=== PATIENT | male | born 1990 | race Caucasian/White ===

== ENCOUNTER 2017-02-21 16:38 | Emergency (ER) | payer SELFPAY ==
--- NOTE | 2017-02-21 16:49 | CPEKG ---
Heart Rate: 140 RR Interval: 429 QRSD Interval: 82 QT Interval: 296 QTC Interval: 452 QRS [place]: 84 T Wave [place]: -11 EKG Severity - ABNORMAL ECG - EKG Impression: ATRIAL FIBRILLATION, V-RATE 101-183 Electronically Signed By: García Guzmán 23-Feb-2017 17:09:19
--- NOTE | 2017-02-21 16:49 | CPEKG ---
Heart Rate: 140 RR Interval: 429 QRSD Interval: 82 QT Interval: 296 QTC Interval: 452 QRS [place]: 84 T Wave [place]: -11 EKG Severity - ABNORMAL ECG - EKG Impression: ATRIAL FIBRILLATION, V-RATE 101-183 Electronically Signed By: García Guzmán 23-Feb-2017 17:09:19
[2017-02-21] MEDS ORDERED: DILTIAZEM 25 MG/5 ML VIAL IVP ONE (16:56)
[2017-02-21] MEDS ORDERED: NS 1,000 ML IV ONE ×2 (16:56→17:59)
[2017-02-21 16:57] VITALS: TEMP 98.4
[2017-02-21 17:07] LABS: PLATELET COUNT 276 10^3/uL (150-400)
--- NOTE | 2017-02-21 17:12 | EDPHY ---
H & P Stated Complaint: sz like activity with unresponsiveness at urgent care, CPR performed Time Seen by Provider: 02/21/17 16:50 HPI/ROS: CHIEF COMPLAINT: Multiple seizures, asystole? HISTORY OF PRESENT ILLNESS: This is a 26-year-old male who went to an urgent care for a general physical exam this morning. Patient states he only had 4 dates for breakfast, waited at the office from 11:00 a.m. until 430, had "9 vials "of blood drawn, and then had a seizure. Per paramedics, staff at the urgent care noted the patient to become unresponsive, have a seizure, they were not able to feel a pulse and began CPR. Patient regained consciousness after approximately 25 chest compressions. Staff at the urgent care reported that he continued to have up to 6 additional seizures. EMS was called. On their arrival they note that the patient was postictal and noted to have a rapid heart rate. On arrival to the emergency department patient is awake, alert, tells me that he has a headache that he has a history of seizures. He reports remote history of traumatic brain injury followed by seizures which typically occur when he is sleep deprived. Patient also tells me that he has been "detoxing "for the last 3 weeks. He reports marijuana use 3 weeks ago. Last alcohol was 1 week ago. Adamantly denies other drugs or substance abuse. No fever, chills, chest pain, shortness of breath, palpitations, vomiting, diarrhea, urinary complaints. REVIEW OF SYSTEMS: Aside from elements discussed in the HPI, a comprehensive 10-point review of systems was reviewed and is negative. PAST MEDICAL HISTORY: Traumatic brain injury, seizures SOCIAL HISTORY: Marijuana use. Nonsmoker. Rare alcohol. VITAL SIGNS Reviewed by me. Atrial fibrillation on the monitor. GENERAL: Well-developed, well-nourished, resting comfortably in no respiratory distress. HEENT: Atraumatic. Eyes: No icterus, no injection. No nystagmus. Mouth: Abrasion to the left side of the tongue. Moist mucous membranes. No erythema or lesions. Neck: supple with no adenopathy. LUNGS: Clear to auscultation bilaterally, no wheezes, rhonchi or rales. CARDIAC: Irregularly irregular, no rubs murmurs or gallops. ABDOMEN: Soft, nontender, nondistended, bowel sounds normal. BACK: No CVA tenderness. EXTREMITIES: No trauma. No edema. Range of motion is normal throughout. NEURO: Alert and oriented, motor strength 5/5 throughout. Sensation intact to light touch. SKIN: Warm and dry, no rash. PSYCHIATRIC: Normal mentation, no agitation. - Personal History Current Tetanus/Diphtheria Vaccine: Yes Tetanus Vaccine Date: 2008 - Medical/Surgical History Hx Asthma: No Hx Chronic Respiratory Disease: No Hx Diabetes: No Hx Cardiac Disease: No Hx Renal Disease: No Hx Cirrhosis: No Hx Alcoholism: No Hx HIV/AIDS: No Hx Splenectomy or Spleen Trauma: No Other PMH: TBI in 2011, reports 6-8 seizures since then. R femur and L humeral ORIFs - Social History Smoking Status: Former smoker Constitutional: Initial Vital Signs Heart Rate 134 H 02/21/17 16:46 Respiratory Rate 18 02/21/17 16:46 Blood Pressure 120/70 02/21/17 16:46 O2 Sat (%) 98 02/21/17 16:46 O2 Delivery Mode Room Air Allergies/Adverse Reactions: No Known Allergies Allergy (Unverified 02/21/17 16:57) Home Medications: Medication Instructions Recorded levETIRAcetam [Keppra 500 mg (*)] 500 mg PO BID #30 tab 02/21/17 Medical Decision Making - Diagnostics EKG Interpretation: 12-LEAD EKG: Please see the full report in [facility]. My interpretation: Atrial fibrillation with rapid ventricular response Imaging Results: Imaging Impressions Chest X-Ray 02/21/17 16:55 Impression: No acute thoracic abnormality. Head CT 02/21/17 16:55 Impression: 1. Normal CT brain without contrast. 2. Bilateral maxillary polyps versus mucous retention cysts. 3. Consider MRI of the brain without and with contrast enhancement, if there is continued clinical concern. Findings and recommendations discussed with Emergency Department physician, Dr. Chaya Villegas at 1713 hours on February 21, 2017. Final report concurs with initial preliminary interpretation. ED Course/Re-evaluation: A 26-year-old male presenting after having multiple seizures. Patient is noted to be in atrial fibrillation on arrival. He tells me he has been detoxing but denies any alcohol use. Head CT was negative. Diltiazem 20 mg administered. Patient's rate is now in the upper 90s. He remains in atrial fibrillation. Patient's course discussed with the hospitalist service. Patient will be admitted to Medicine for ongoing treatment of his atrial fibrillation as well as his seizure history. Around 6:00 p.m., the patient reports that he does not wish to be admitted to the hospital. He tells me that his post be catching a flight tomorrow to [place] and then onto a [facility] where he has a job. On re-examination the patient is noted to now be in sinus rhythm. Repeat EKG was obtained demonstrates normal sinus rhythm. I held a long discussion with the patient and explained the importance of further evaluation of his atrial fibrillation, further evaluation of his seizure history. We again asked the patient to please be admitted to the hospital and again he declined. He is alert, oriented, competent to refuse. He was given prescription for Keppra to begin taking. He was instructed regarding the importance of close follow-up. He was warned of consequences of undiagnosed and ongoing atrial fibrillation to include sudden , cardiac ischemia, heart failure, seizures, coma, , stroke, other unforeseen consequences. He understands these concerns. He was also discussed the importance of obtaining further follow-up patient's recurrent seizures. Patient did sign an AMA form. Differential Diagnosis: Differential diagnosis of the patient's seizure was considered including but not limited to electrolyte abnormality, alcohol withdrawal, medication noncompliance, head injury, meningitis, encephalitis, and breakthrough seizure. Differential diagnosis for the patient's atrial fibrillation was considered including but not limited to electrolyte abnormalities, cardiac ischemia, drug or alcohol thought, drug or alcohol withdrawal, severe dehydration, underlying cardiac disease, structural cardiac abnormality. - Data Points Laboratory Results: Laboratory Results 02/21/17 16:38 02/21/17 16:38 02/21/17 02/21/17 02/21/17 18:10 16:38 16:38 WBC 13.68 10^3/uL H 10^3/uL (3.80-9.50) RBC 5.85 10^6/uL 10^6/uL (4.40-6.38) Hgb 17.8 g/dL H g/dL (13.7-17.5) POC Hgb Hct 54.7 % H % (40.0-51.0) POC Hct MCV 93.5 fL fL (81.5-99.8) MCH 30.4 pg pg (27.9-34.1) MCHC 32.5 g/dL g/dL (32.4-36.7) RDW 12.9 % % (11.5-15.2) Plt Count 276 10^3/uL 10^3/uL (150-400) MPV 10.6 fL fL (8.7-11.7) Neut % (Auto) 44.0 % % (39.3-74.2) Lymph % (Auto) 45.3 % H % (15.0-45.0) [place] % (Auto) 8.4 % % (4.5-13.0) Eos % (Auto) 1.3 % % (0.6-7.6) Baso % (Auto) 0.6 % % (0.3-1.7) Nucleat RBC Rel Count 0.0 % % (0.0-0.2) Absolute Neuts (auto) 6.01 10^3/uL 10^3/uL (1.70-6.50) Absolute Lymphs (auto) 6.20 10^3/uL H 10^3/uL (1.00-3.00) Absolute Monos (auto) 1.15 10^3/uL H 10^3/uL (0.30-0.80) Absolute Eos (auto) 0.18 10^3/uL 10^3/uL (0.03-0.40) Absolute Basos (auto) 0.08 10^3/uL 10^3/uL (0.02-0.10) Absolute Nucleated RBC 0.00 10^3/uL 10^3/uL (0-0.01) Immature Gran % 0.4 % % (0.0-1.1) Immature Gran # 0.06 10^3/uL 10^3/uL (0.00-0.10) POC Sodium Sodium 141 mEq/L mEq/L (134-144) POC Potassium Potassium 4.0 mEq/L mEq/L (3.5-5.2) POC Chloride Chloride 99 mEq/L mEq/L (97-110) Carbon Dioxide 9 mEq/l L* mEq/l (22-31) Anion Gap 33 mEq/L H mEq/L (8-16) POC BUN BUN 6 mg/dL L mg/dL (7-23) Creatinine 1.1 mg/dL mg/dL (0.7-1.3) POC Creatinine Estimated GFR > 60 Glucose 119 mg/dL H mg/dL (70-100) POC Glucose Calcium 10.2 mg/dL mg/dL (8.5-10.4) Total Bilirubin 1.1 mg/dL mg/dL (0.1-1.4) Conjugated Bilirubin 0.2 mg/dL mg/dL (0.0-0.5) Unconjugated Bilirubin 0.9 mg/dL mg/dL (0.0-1.1) AST 38 IU/L IU/L (17-59) ALT 32 IU/L IU/L (21-72) Alkaline Phosphatase 101 IU/L IU/L (38-126) Creatine Kinase 322 IU/L H IU/L (0-224) CK-MB (CK-2) Fraction 2.03 ng/mL ng/mL (0.00-4.55) CK-MB (CK-2) % 0.6 % % (0.0-4.0) Creatine Kinase Interp NEGATIVE (NEGATIVE) Troponin I < 0.012 ng/mL ng/mL (0.000-0.034) Total Protein 8.5 g/dL H g/dL (6.3-8.2) Albumin 5.7 g/dL H g/dL (3.5-5.0) Lipase 138 IU/L IU/L (23-300) Urine Color YELLOW Urine Appearance HAZY Urine pH 6.0 (5.0-7.5) Ur Specific [place] 1.009 (1.002-1.030) Urine Protein 1+ H (NEGATIVE) Urine Ketones NEGATIVE (NEGATIVE) Urine Blood 2+ H (NEGATIVE) Urine Nitrate NEGATIVE (NEGATIVE) Urine Bilirubin NEGATIVE (NEGATIVE) Urine Urobilinogen NEGATIVE EU EU (0.2-1.0) Ur Leukocyte Esterase NEGATIVE (NEGATIVE) Urine RBC 1-3 /hpf /hpf (0-3) Urine WBC 3-5 /hpf H /hpf (0-3) Ur Epithelial Cells NONE SEEN /lpf /lpf (NONE-1+) Urine Mucus 1+ /lpf /lpf (NONE-1+) Urine Sperm PRESENT /hpf /hpf (NONE SEEN) Urine Glucose NEGATIVE (NEGATIVE) Urine Opiates Screen NEGATIVE (NEGATIVE) Urine Barbiturates NEGATIVE (NEGATIVE) Ur Phencyclidine Scrn NEGATIVE (NEGATIVE) Ur Amphetamine Screen NEGATIVE (NEGATIVE) U Benzodiazepines Scrn NEGATIVE (NEGATIVE) Urine Cocaine Screen NEGATIVE (NEGATIVE) U Marijuana (THC) Screen NON-NEGATIVE H (NEGATIVE) Ethyl Alcohol < 10 mg/dL mg/dL (0-10) 02/21/17 16:37 WBC RBC Hgb POC Hgb 17.7 gm/dL H gm/dL (13.7-17.5) Hct POC Hct 52 % H % (40-51) MCV MCH MCHC RDW Plt Count MPV Neut % (Auto) Lymph % (Auto) [place] % (Auto) Eos % (Auto) Baso % (Auto) Nucleat RBC Rel Count Absolute Neuts (auto) Absolute Lymphs (auto) Absolute Monos (auto) Absolute Eos (auto) Absolute Basos (auto) Absolute Nucleated RBC Immature Gran % Immature Gran # POC Sodium 140 mEq/L mEq/L (134-144) Sodium POC Potassium 3.5 mEq/L mEq/L (3.3-5.0) Potassium POC Chloride 104 mEq/L mEq/L (97-110) Chloride Carbon Dioxide Anion Gap POC BUN 6 mg/dL L mg/dL (7-23) BUN Creatinine POC Creatinine 1.0 mg/dL mg/dL (0.7-1.3) Estimated GFR Glucose POC Glucose 122 mg/dL H mg/dL (70-100) Calcium Total Bilirubin Conjugated Bilirubin Unconjugated Bilirubin AST ALT Alkaline Phosphatase Creatine Kinase CK-MB (CK-2) Fraction CK-MB (CK-2) % Creatine Kinase Interp Troponin I Total Protein Albumin Lipase Urine Color Urine Appearance Urine pH Ur Specific [place] Urine Protein Urine Ketones Urine Blood Urine Nitrate Urine Bilirubin Urine Urobilinogen Ur Leukocyte Esterase Urine RBC Urine WBC Ur Epithelial Cells Urine Mucus Urine Sperm Urine Glucose Urine Opiates Screen Urine Barbiturates Ur Phencyclidine Scrn Ur Amphetamine Screen U Benzodiazepines Scrn Urine Cocaine Screen U Marijuana (THC) Screen Ethyl Alcohol Medications Given: Discontinued Medications Diltiazem HCl (Cardizem 25 Mg/5 Ml Vial) 20 mg IVP EDNOW ONE Stop: 02/21/17 16:57 Last Admin: 02/21/17 17:13 Dose: 20 mg Sodium Chloride (Ns) 1,000 mls @ 0 mls/hr IV ONCE ONE; Wide Open PRN Reason: Protocol Stop: 02/21/17 16:57 Last Admin: 02/21/17 17:00 Dose: 1,000 mls Point of Care Test Results: 02/21/17 16:37 POC Sodium 140 POC Potassium 3.5 POC Chloride 104 POC BUN 6 L POC Creatinine 1.0 POC Glucose 122 H Departure - Departure Disposition: Against Medical Advice Clinical Impression: Seizures Atrial fibrillation Qualifiers: Atrial fibrillation type: paroxysmal Qualified Code(s): I48.0 - Paroxysmal atrial fibrillation Condition: Fair Instructions: A-fib (Atrial Fibrillation) (ED), Recurrent Seizures in Adults ( ED) Additional Instructions: You understand that you are leaving against our advice. You understand that further evaluation for your seizures and further evaluation for atrial fibrillation is required. You understand that you must follow up with a primary care physician or microelectronics technician as soon as possible. If you developed lightheadedness, palpitations, fainting, chest pain, or shortness of breath, seek care urgently. If you develop recurrent seizures, seek care immediately. You been given a prescription for Keppra. Please take 500 mg by mouth 2 times a day for the next 2 weeks. Within that timeframe you need to be seen by a neurologist for further recommendations regarding anti seizure medications. Referrals: Patient,NotPresent [Unknown] - As per Instructions Prescriptions: levETIRAcetam [Keppra 500 mg (*)] 500 mg PO BID #30 tab
[2017-02-21 17:15] LABS: CREATINE KINASE 322 IU/L (0-224)
[2017-02-21] MEDS ORDERED: DILTIAZEM 125 MG in D5W 125 ML IV ONE (17:58)
--- NOTE | 2017-02-21 18:28 | CPEKG ---
Heart Rate: 97 RR Interval: 619 P-R Interval: 180 QRSD Interval: 88 QT Interval: 320 QTC Interval: 407 P [place]: 72 QRS [place]: 80 T Wave [place]: 42 EKG Severity - NORMAL ECG - EKG Impression: SINUS RHYTHM Electronically Signed By: García Guzmán 23-Feb-2017 17:09:13
--- NOTE | 2017-02-21 18:28 | CPEKG ---
Heart Rate: 97 RR Interval: 619 P-R Interval: 180 QRSD Interval: 88 QT Interval: 320 QTC Interval: 407 P [place]: 72 QRS [place]: 80 T Wave [place]: 42 EKG Severity - NORMAL ECG - EKG Impression: SINUS RHYTHM Electronically Signed By: García Guzmán 23-Feb-2017 17:09:13
[2017-02-21 18:32] VITALS: BP 133/80; PULSE 91; RESP 16; O2SAT 96
== END 2017-02-21 18:41 | disposition left against medical advice (07) ==
LOC: UNDOADMOB 17:58
DX: G40.909 Epilepsy, unspecified, not intractable, without status epilepticus (principal); I48.0 Paroxysmal atrial fibrillation; E86.9 Volume depletion, unspecified; Z87.891 Personal history of nicotine dependence
CPT/HCPCS: 80305; 82947-QW; 96374; G0480